=== PATIENT | male | born 1965 | race Caucasian/White ===

== ENCOUNTER → 2020-11-08 | Day surgery (SDC) | payer OTHER ==
[~2020-11-08] MED LIST: Lactated Ringers 1,000 ML IV SCH; Midazolam 1 MG/ML 2 ML SDV ONE; Propofol 200 MG/20 ML SDV ONE; fentaNYL 100 MCG/2 ML SDV ONE
[2020-11-08 11:56] VITALS: BP 131/83; PULSE 75
--- NOTE | 2020-11-08 14:05 | OR ---
DATE OF OPERATION: 11/08/2020 PREOPERATIVE DIAGNOSIS: SCREENING COLONOSCOPY. POSTOPERATIVE DIAGNOSIS: SCREENING COLONOSCOPY. SURGEON: Darnell Benitez MD PROCEDURE: FULL-LENGTH COLONOSCOPY. ANESTHESIA: MAC. COMPLICATIONS: None. SPECIMEN: None. FINDINGS: Normal full-length colonoscopy. RECOMMENDATIONS: Followup colonoscopy every 10 years. INDICATIONS: Mr. Manzo was in for a routine physical. He is due for a routine screen given his age. DESCRIPTION OF PROCEDURE: The patient was prepped and draped, placed in the left lateral decubitus position. A lubricated Olympus colonoscope was inserted and easily advanced to the cecum. Direct visualization of the ileocecal valve and appendiceal orifice was accomplished. The bowel prep was adequate. There was a lot of liquid stool throughout most areas, could be suctioned. A small portion of colon was not visualized to its full extent and smaller lesions might have been missed. Upon withdrawal, throughout the entire length of the colon, I could find no signs of any polyps, masses, ulceration, or bleeding sites. No vascular abnormalities or signs of colitis. There were no diverticula. The rectal vault was benign. Retroflexion showed no perianal lesions. Air was suctioned and the scope removed without complication. ROSLYN/TIMMY /[id number]
== END ==
LOC: CC.SDS 09:53
PROVIDERS: ATTEND Family Medicine
DX: Z12.11 Encounter for screening for malignant neoplasm of colon (principal); N40.0 Benign prostatic hyperplasia without lower urinary tract symptoms; G47.33 Obstructive sleep apnea (adult) (pediatric); I10 Essential (primary) hypertension; E66.9 Obesity, unspecified; Z68.38 Body mass index [BMI] 38.0-38.9, adult
CPT/HCPCS: 45378; J7120; 00812; J2250; J2704; J3010